=== PATIENT | male | born 1955 ===

== ENCOUNTER 2020-09-26 06:26 | Day surgery (SDC) | payer OTHER | END 2020-09-26 11:30 | disposition home or self-care (01) | LOC: AMB-ENDOS 06:26 | PROVIDERS: ATTEND Colon & Rectal Surgery | DX: D12.3 Benign neoplasm of transverse colon (principal); D12.4 Benign neoplasm of descending colon; K64.1 Second degree hemorrhoids; Z20.828 Contact with and (suspected) exposure to other viral communicable diseases ==